=== PATIENT | female | born 2000 | race Caucasian/White ===

== ENCOUNTER 2018-01-19 20:33 | Inpatient (IN) | payer OTHER ==
[~2018-01-19] VITALS: Ht 162.6 cm; Wt 79.4 kg
[2018-01-19] MEDS ORDERED: SPRINTEC1 TAB PO (20:55)
[2018-01-19 21:33] LABS: HCG URINE NEGATIVE (NEGATIVE)
[2018-01-19 21:45] LABS: ALBUMIN 3.9 g/dL (3.4-5.0); ALKALINE PHOSPHATASE 60 U/L (46-116); ALT (SGPT) 18 U/L (10-68); AMYLASE - SERUM 60 U/L (25-115); BILIRUBIN - TOTAL 0.26 mg/dL (0.2-1.3); CALC OSMOLALITY 269 mosm/kg (275-300); CALCIUM 8.8 mg/dL (8.5-10.1); CARBON DIOXIDE 27.4 mmol/L (21.0-32.0); CHLORIDE - SERUM 102 mmol/L (98-107); CREATININE - SERUM 0.8 mg/dL (0.6-1.3); GLUCOSE 105 mg/dL (74-106); LIPASE 165 U/L (73-393); POTASSIUM - SERUM 3.7 mmol/L (3.5-5.1); PROTEIN - SERUM 7.9 g/dL (6.4-8.2); SODIUM 136 mmol/L (136-145); UREA NITROGEN 8 mg/dL (7-18); eGFR NON AFRICAN AMERICAN > 90 mL/min (90-120)
[2018-01-19 21:50] LABS: APPEARANCE CLEAR (CLEAR); BILIRUBIN NEGATIVE (NEGATIVE); COLOR YELLOW (YELLOW); GLUCOSE NEGATIVE (NEGATIVE); KETONE NEGATIVE (NEGATIVE); NITRITE NEGATIVE (NEGATIVE); PROTEIN NEGATIVE (NEGATIVE); SPECIFIC GRAVITY 1.015 (1.005-1.020); UROBILINOGEN NORMAL (NORMAL)
[2018-01-19 21:51] LABS: BACTERIA FEW /hpf (NONE SEEN); RED CELLS - URINE OCC /hpf (0-5); WHITE CELLS - URINE 0-5 /hpf (0-5)
[2018-01-19 21:55] LABS: HEMATOCRIT 37.8 % (36.0-48.0); HEMOGLOBIN 12.9 g/dL (12-16); MCH 31.2 pg (26.0-34.0); MCHC 34.1 g/dL (31.0-37.0); MCV 91.3 fL (80.0-100.0); MEAN PLATELET VOLUME 9.7 fL (7.4-10.4); PLATELET COUNT 300 10x3/uL (130-400); RBC 4.14 10x6/uL (4.00-5.40); RDW 13.2 % (11.5-14.5); WBC 20.2 10x3/uL (4.8-10.8)
[2018-01-19 21:56] LABS: EOSINOPHILS 2 % (0-7); LYMPHOCYTES 10 % (15-50); MONOCYTES 3 % (2-11); NEUTROPHILS 85 % (40-80); PLATELET ESTIMATE NORMAL
[2018-01-20] VITALS (10 sets, daily range): BP systolic 115–136; BP diastolic 67–91; Ht 162.6 cm; Wt 79.4 kg
[2018-01-20 06:45] LABS: BASOPHILS 0.2 % (0-2); EOSINOPHILS 0.3 % (0-7); HEMATOCRIT 35.8 % (36.0-48.0); HEMOGLOBIN 11.9 g/dL (12-16); IMMATURE GRANULOCYTES 0.3 % (0-5); LYMPHOCYTES 19.1 % (15-50); MCH 30.8 pg (26.0-34.0); MCHC 33.2 g/dL (31.0-37.0); MCV 92.7 fL (80.0-100.0); MONOCYTES 7.6 % (2-11); NEUTROPHILS 72.5 % (40-80); PLATELET COUNT 257 10x3/uL (130-400); RBC 3.86 10x6/uL (4.00-5.40); RDW 13.6 % (11.5-14.5); WBC 15.3 10x3/uL (4.8-10.8)
[2018-01-20 07:16] LABS: ALKALINE PHOSPHATASE 54 U/L (46-116); BILIRUBIN - TOTAL 0.37 mg/dL (0.2-1.3); CALC OSMOLALITY 279 mosm/kg (275-300); CALCIUM 8.1 mg/dL (8.5-10.1); CARBON DIOXIDE 27.1 mmol/L (21.0-32.0); CHLORIDE - SERUM 107 mmol/L (98-107); CREATININE - SERUM 0.7 mg/dL (0.6-1.3); GLUCOSE 89 mg/dL (74-106); POTASSIUM - SERUM 4.1 mmol/L (3.5-5.1); SODIUM 142 mmol/L (136-145); UREA NITROGEN 6 mg/dL (7-18); eGFR NON AFRICAN AMERICAN > 90 mL/min (90-120)
[2018-01-20 07:22] LABS: ALT (SGPT) 13 U/L (10-68)
[2018-01-20] MEDS ORDERED: HYDROCODON-ACE1 EAC7 PO (13:34)
== END 2018-01-20 15:23 | disposition home or self-care (01) | DRG 340 ==
LOC: D.ER 20:33 → D.MS 01-20 00:24 → D.EDHOLD 01-20 00:24 → D.MS 01-20 01:29
PROVIDERS: Family Medicine; Surgery
PROC: 0DTJ4ZZ Resection of Appendix, Percutaneous Endoscopic Approach (ICD-10-PCS; principal; 2018-01-20 09:45)
DX: K35.3 Acute appendicitis with localized peritonitis (principal); R10.13 Epigastric pain; R10.31 Right lower quadrant pain

== ENCOUNTER 2018-08-11 22:23 | Emergency (ER) | payer OTHER ==
[~2018-08-11] VITALS: Ht 162.6 cm; Wt 81.8 kg
[~2018-08-11 22:23] MED LIST: HYDROCODON-ACE1 EAC7 PO; SPRINTEC1 TAB PO
[2018-08-11 22:42] VITALS: Ht 162.6 cm; Wt 81.8 kg
[2018-08-12 00:44] LABS: HCG URINE NEGATIVE (NEGATIVE)
[2018-08-12] MEDS ORDERED: MEDROL DOSE PACK4 MG PO (00:44)
[2018-08-12] MEDS ORDERED: PHENERGAN DM SYR5 ML PO (00:44)
[2018-08-12] MEDS ORDERED: CIPRO500 MG PO (00:44)
[2018-08-12 00:49] LABS: APPEARANCE CLEAR (CLEAR); BILIRUBIN NEGATIVE (NEGATIVE); COLOR YELLOW (YELLOW); GLUCOSE NEGATIVE (NEGATIVE); KETONE NEGATIVE (NEGATIVE); NITRITE NEGATIVE (NEGATIVE); PROTEIN NEGATIVE (NEGATIVE); UROBILINOGEN NORMAL (NORMAL)
[2018-08-12 00:50] LABS: BACTERIA NONE SEEN /hpf (NONE SEEN); EPITHELIAL CELLS 0-5 /hpf (0-5); RED CELLS - URINE 0-5 /hpf (0-5); WHITE CELLS - URINE NSEEN /hpf (0-5)
[2018-08-12 01:46] VITALS: BP 153/94
== END 2018-08-12 01:47 | disposition home or self-care (01) ==
LOC: D.ER 22:23
PROVIDERS: Family Medicine
DX: J06.9 Acute upper respiratory infection, unspecified (principal); R21 Rash and other nonspecific skin eruption